=== PATIENT | female | born 1995 | race African-American/Black ===

== ENCOUNTER 2020-08-02 17:37 | Emergency (ER) | payer SELFPAY ==
[~2020-08-02] VITALS: Ht 165.1 cm; Wt 98.4 kg
[2020-08-02] MEDS ORDERED: LIDOCAINE 1% 5ML-MPF INJ STA (18:02)
[2020-08-02] MEDS ORDERED: MOTRIN200 MG PO (18:13)
[2020-08-02] MEDS ORDERED: CEPHALEXIN500 MG PO (18:13)
== END 2020-08-02 18:31 | disposition home or self-care (01) ==
LOC: ER 17:45
DX: S61.412A Laceration without foreign body of left hand, initial encounter (principal); W26.0XXA Contact with knife, initial encounter; Y93.9 Activity, unspecified
CPT/HCPCS: 99283

== ENCOUNTER 2020-11-13 01:20 | Emergency (ER) | payer OTHER ==
[~2020-11-13] VITALS: Ht 165.1 cm; Wt 98.4 kg
[~2020-11-13 01:20] MED LIST: CEPHALEXIN500 MG PO; MOTRIN200 MG PO
[2020-11-13 01:56] LABS: BASOPHILS # (AUTO) 0.1 (0.0-0.1); BASOPHILS % 0.5 % (0.0-1.0); EOSINOPHILS % 0.2 % (0.0-6.0); HEMATOCRIT 39.7 % (34.2-44.1); LYMPHOCYTES # (AUTO) 2.7 (1.0-3.2); LYMPHOCYTES % 24.3 % (18.0-39.1); MEAN CORPUSCULAR HEMOGLOBIN 26.3 pg (28-32); MEAN CORPUSCULAR HGB CONC 32.7 g/dL (31-35); MEAN CORPUSCULAR VOLUME 80.2 fL (81-99); MONOCYTES # (AUTO) 0.5 (0.2-0.8); MONOCYTES % 4.2 % (4.4-11.3); NEUTROPHILS # (AUTO) 7.8 (2.1-6.9); NEUTROPHILS % 70.3 % (38.7-80.0); PLATELET COUNT 286 x10e3/uL (140-360); RED BLOOD COUNT 4.95 x10e6/uL (3.6-5.1); RED CELL DISTRIBUTION WIDTH 14.6 % (11.7-14.4)
[2020-11-13 02:15] LABS: ALBUMIN/GLOBULIN RATIO 0.9 (0.8-2.0); ANION GAP 14.6 mmol/L (8-16); CALCIUM 9.4 mg/dL (8.4-10.2); CREATININE, SERUM 0.95 mg/dL (0.57-1.11); POTASSIUM 3.6 mmol/L (3.5-5.1)
[2020-11-13 02:22] LABS: CREATINE KINASE MB 0.9 ng/mL (0-5.0)
[2020-11-13] MEDS ORDERED: METHOCARBAMOL750 MG PO (02:22)
== END 2020-11-13 03:30 | disposition home or self-care (01) ==
LOC: ER 01:42
DX: R07.89 Other chest pain (principal); V43.52XA Car driver injured in collision with other type car in traffic accident, initial encounter; Y92.488 Other paved roadways as the place of occurrence of the external cause
CPT/HCPCS: 36415; 71045; 80053; 80320; 82550; 82553; 84484; 85025; 93005; 99284

== ENCOUNTER 2022-06-28 15:07 | Emergency (ER) | payer SELFPAY ==
[~2022-06-28] VITALS: Ht 167.6 cm; Wt 97.5 kg
[~2022-06-28 15:07] MED LIST changes: +METHOCARBAMOL750 MG PO
[2022-06-28] MEDS ORDERED: ACETAMINOPHEN 325 MG TAB PO ONE (15:30)
[2022-06-28] MEDS ORDERED: ULTRAM 50MG50 MG PO ×2 (16:47→16:53)
== END 2022-06-28 17:05 | disposition home or self-care (01) ==
LOC: ER 15:14
DX: S62.326A Displaced fracture of shaft of fifth metacarpal bone, right hand, initial encounter for closed fracture (principal); W22.09XA Striking against other stationary object, initial encounter; Y92.89 Other specified places as the place of occurrence of the external cause
CPT/HCPCS: 99283